=== PATIENT | female | born 1980 | race Caucasian/White ===

== ENCOUNTER 2021-05-17 18:41 | Emergency (ER) | payer OTHER ==
[2021-05-17 21:35] LABS: BASOPHIL 0.9 % (0-2); EOSINOPHIL 4.1 % (0-5); HCT 39.1 % (37.0-47.0); HGB 13.6 g/dl (12.5-16.0); LYMPHOCYTE 29.2 % (15-48); MCH 33.2 pg (25.0-31.0); MCHC 34.8 g/dL (32.0-36.0); MCV 95.4 fL (78.0-100.0); MONOCYTE 6.8 % (0-12); MPV 10.6 fL (6.0-9.5); NEUTROPHIL 58.8 % (41-80); NRBC 0; RDW 11.5 % (11.5-14.0); WBC 8.8 K/uL (4.0-10.5)
[2021-05-17 21:51] LABS: ALBUMIN 4.2 g/dL (3.4-5.0); BILIRUBIN - TOTAL 0.3 mg/dL (0.2-1.0); BUN/CREAT RATIO (CALC) 18.9 RATIO; CREATININE 0.74 mg/dL (0.51-0.95); GLOBULIN (CALCULATION) 2.6 g/dL; POTASSIUM 3.8 mmol/L (3.5-5.1); TOTAL PROTEIN 6.8 g/dL (6.4-8.2)
[2021-05-17 22:01] LABS: PLT 212 K/uL (150-400)
[2021-05-17 22:13] LABS: BILIRUBIN NEGATIVE (NEGATIVE); BLOOD NEGATIVE Ery/uL (NEGATIVE); CLARITY CLEAR (CLEAR); COLOR YELLOW (YELLOW); GLUCOSE (U) NORMAL (NORMAL); LEUKOCYTES NEGATIVE Leu/uL (NEGATIVE); NITRITE NEGATIVE (NEGATIVE); PROTEIN NEGATIVE (NEGATIVE); SPECIFIC GRAVITY >=1.030 (1.001-1.030); UROBILINOGEN 0.2 mg/dL (0.2-1.0)
[2021-05-18] MEDS ORDERED: ONDANSETRON ODT4 MG PO (00:12)
[2021-05-18] MEDS ORDERED: AUGMENTIN 875-1 EACH PO (00:12)
[2021-05-18] MEDS ORDERED: PREVACID30 M1 PO (00:12)
== END 2021-05-18 00:40 | disposition home or self-care (01) ==
LOC: FER 18:41
PROVIDERS: Physician Assistant
DX: K52.9 Noninfective gastroenteritis and colitis, unspecified (principal); K92.0 Hematemesis; Z88.8 Allergy status to other drugs, medicaments and biological substances
CPT/HCPCS: 36415; 80053; 81003; 85025; J7030; Q9967